=== PATIENT | male | born 1980 | race Caucasian/White ===

== ENCOUNTER 2018-03-31 18:34 | Emergency (ER) | payer SELFPAY ==
[~2018-03-31] VITALS: Ht 188 cm; Wt 98.0 kg
[~2018-03-31 18:34] MED LIST: IBUP100S PO; MEDR4PAK3 PO; NAPR250UDC PO
[2018-03-31 18:36] VITALS: BP 119/68; PULSE 58; RESP 18; TEMP 97.3; O2SAT 97
--- NOTE | 2018-03-31 18:52 | PD ---
HPI Chief Complaint: ENT Complaint Time Seen by Provider: 18:51 Travel History International Travel<30 days: No Contact w/Intl Traveler<30days: No Traveled to known affect area: No History of Present Illness HPI 37-year-old male with no significant medical history presents emergency department for evaluation of sore throat. Patient states began 2 days ago. He has had no fever or chills. He has had no cough or chest congestion. He has had a mild pressure in his ears but no significant pain. He has no other symptoms to report at this time. 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 HEAD: Normocephalic. No mastoid tenderness EARS: Bilateral pinnae and external canals appear within normal limits. Bilateral tympanic membranes without erythema, dullness or perforation. EYES: No scleral icterus. No injection or drainage. ENT: Mucosa pink and moist. Pharynx with erythema, no significant edema or exudate. No uvular edema. No uvular, palatal, or tonsillar deviation. Airway patent. Nasal turbinates appear normal without nasal blood, purulent drainage or septal hematoma. NECK: Supple, trachea midline. No JVD or lymphadenopathy. CARDIOVASCULAR: Regular rate and rhythm without murmurs, gallops, or rubs. RESPIRATORY: Breath sounds equal bilaterally. No accessory muscle use. GASTROINTESTINAL: Abdomen soft, non-tender, nondistended. MUSCULOSKELETAL: No cyanosis, or edema. BACK: Nontender without obvious deformity. No CVA tenderness. Data Data Last Documented VS Vital Signs Date Time Temp Pulse Resp B/P (MAP) Pulse Ox O2 Delivery O2 Flow Rate FiO2 03/31/18 18:36 97.3 58 18 119/68 (85) 97 Orders Orders Group A Rapid Strep Screen (03/31/18 18:52) Dexamethasone Inj (Decadron Inj) (03/31/18 19:00) Strep Culture (Group A) (03/31/18 18:55) Ed Discharge Order (03/31/18 19:28) MDM Medical Decision Making Medical Screen Exam Complete: Yes Emergency Medical Condition: Yes Medical Record Reviewed: Yes Differential Diagnosis Tonsillitis versus pharyngitis versus common cold versus allergies Narrative Course 37-year-old male presents emergency department for evaluation sore throat. Patient appears without distress. Vital signs are stable. Strep screen is negative. Patient is given IV Decadron, counseled on care and encouraged follow -up with primary care provider. He agrees to return immediately with acute worsening symptoms. Diagnosis Primary Impression: Pharyngitis Qualified Codes: J02.9 - Acute pharyngitis, unspecified Referrals: Primary Care Physician Patient Instructions: General Instructions, Pharyngitis (ED) Departure Forms: Tests/Procedures, Work Release Enter return to work date: Apr 02, 2018 Additional Instructions: Warm saltwater gargles may help to alleviate symptoms Follow-up with a primary care provider Tylenol or ibuprofen as directed on the package as needed for fever and/or pain Return immediately with acute worsening symptoms Med/Other Pt SpecificInfo: No Change to Meds Disposition: 01 DISCHARGE HOME Condition: Stable Annalise Foster Mar 31, 2018 18:52
[2018-03-31] MEDS ORDERED: DEXAMETHASONE SOD PHOS 4 MG/ML VIAL IM ONE (19:00)
== END 2018-03-31 19:52 | disposition home or self-care (01) ==
LOC: PHEFT 18:34
DX: J02.9 Acute pharyngitis, unspecified (principal); H93.93 Unspecified disorder of ear, bilateral; Z72.0 Tobacco use
CPT/HCPCS: 87081; 87880; 96372; 99283; J1100